=== PATIENT | female | born 1950 | race Two or more races ===

== ENCOUNTER → 2021-10-23 | Outpatient (CLI) | payer MEDICARE, BC ==
[2021-10-23 16:37] LABS: Appearance,Urine Clear (Clear); Bacteria,Urine None Seen /HPF (None Seen); Bilirubin,Urine Negative (Negative); Blood,Urine Negative (Negative); Color,Urine Yellow (Yellow); Ketones,Urine Negative (Negative); Nitrite,Urine Negative (Negative); Specific Gravity,Urine 1.017 (1.001-1.030); Urobilinogen,Urine 0.2 (0.2,1.0)
== END | disposition home or self-care (01) ==
LOC: LABPAT 09:53
PROVIDERS: ATTEND Orthopaedic Surgery
DX: Z01.812 Encounter for preprocedural laboratory examination (principal); M17.12 Unilateral primary osteoarthritis, left knee
CPT/HCPCS: 81001; 87070

== ENCOUNTER → 2021-10-30 | Outpatient (CLI) | payer MEDICARE, BC ==
--- NOTE | 2021-10-30 16:29 | CT ---
EXAMINATION TYPE: CT left knee - [facility] Protocol DATE OF EXAM: 10/30/2021 COMPARISON: None. HISTORY: left knee pain CT DLP: 885.2 mGycm Automated exposure control for dose reduction was used. FINDINGS: Exam is for surgical planning and not for diagnostic purposes. Left hip joint shows advanced degenera tive change with [id number] appearance and extensive subchondral cystic change. There are prominent head neck collar spurs in the left proximal femur. Osseous structures are demineralized. Moderate to severe tricompartment joint space loss and spurring in the left knee joint is appreciated . Ankle mortise symmetry is maintained. IMPRESSION: As above.
== END | disposition home or self-care (01) ==
LOC: RADCTMAIN 15:37
PROVIDERS: ATTEND Orthopaedic Surgery
DX: M16.12 Unilateral primary osteoarthritis, left hip (principal); M85.652 Other cyst of bone, left thigh; M25.862 Other specified joint disorders, left knee

== ENCOUNTER 2021-11-15 05:44 | Inpatient (IN) | payer MEDICARE, BC ==
[2021-11-13 11:47] VITALS: BMI 40.1
[~2021-11-15 05:44] MED LIST: TRANEXAMIC ACID IN NACL,ISO-OS 1,000 MG in SALINE 1 100ML.BAG IVPB PRN
[2021-11-15] MEDS ORDERED: ACETAMINOPHEN TAB 500 MG TAB PO PRN (06:00)
[2021-11-15] MEDS ORDERED: DEXAMETHASONE SOD PHOSPHATE 10 MG/ML 1 ML VIAL IV PRN (06:00)
[2021-11-15] MEDS ORDERED: FAMOTIDINE 20 MG/2 ML VIAL IVP PRN (06:00)
[2021-11-15] MEDS ORDERED: ONDANSETRON 4 MG/2 ML VIAL IVP PRN ×3 (06:00→10:38)
[2021-11-15] MEDS ORDERED: oxyCODONE ER 10 MG TAB.ER.12H PO PRN (06:00)
[2021-11-15] MEDS ORDERED: KETOROLAC 15 MG/ML 1 ML VIAL IVP PRN (06:00)
[2021-11-15] MEDS ORDERED: DOCUSATE 100 MG CAP PO PRN (06:00)
[2021-11-15] MEDS ORDERED: LIDOCAINE 1% (10MG/ML) FOR IV START INTRADERMA PRN (06:17)
[2021-11-15] MEDS ORDERED: ONDANSETRON 4 MG/2 ML VIAL IVP ONE (06:17)
[2021-11-15] MEDS ORDERED: DEXAMETHASONE SOD PHOSPHATE 4 MG/ML 1 ML VIAL IV ONE (06:17)
[2021-11-15] MEDS: LACTATED RINGERS 1,000 ML IV SCH ×2 (06:22→16:12)
[2021-11-15] MEDS ORDERED: HYDROmorphone 0.5 MG/0.5 ML SYRINGE IVP PRN ×3 (07:00→10:38)
[2021-11-15] MEDS ORDERED: MIDAZOLAM 2 MG/2 ML VIAL IVP ONE (07:00)
[2021-11-15] MEDS ORDERED: ROPIVACAINE 5 MG/ML 30 ML VIAL ONE (07:54)
[2021-11-15] MEDS ORDERED: PROPOFOL 10 MG/ML 20 ML VIAL IV ONE (07:54)
[2021-11-15] MEDS ORDERED: LABETALOL 5 MG/ML VIAL MDV ONE (07:54)
[2021-11-15] MEDS ORDERED: TRANEXAMIC ACID IN NACL,ISO-OS 1,000 MG/100 ML BAG ONE (07:54)
[2021-11-15] MEDS ORDERED: SUCCINYLCHOLINE CHLORIDE VIAL 200 MG/10 ML VIAL IV ONE (07:54)
[2021-11-15] MEDS ORDERED: HYDROmorphone (PF) 1 MG/ML ONE (07:54)
[2021-11-15] MEDS ORDERED: DEXAMETHASONE SOD PHOSPHATE 4 MG/ML 1 ML VIAL ONE (07:54)
[2021-11-15] MEDS ORDERED: LIDOCAINE 2% INJ 20 MG/ML (2 ML VIAL) ONE (07:54)
[2021-11-15] MEDS ORDERED: GLYCOPYRROLATE 0.2 MG/ML 2 ML VIAL ONE (07:54)
[2021-11-15] MEDS ORDERED: ROCURONIUM 10 MG/ML (5 ML VIAL) IV ONE (07:54)
[2021-11-15] MEDS ORDERED: NEOSTIGMINE 1 MG/ML 10 ML VIAL ONE (07:54)
[2021-11-15] MEDS ORDERED: fentaNYL (PF) 50 MCG/ML 2 ML AMP ONE (07:54)
[2021-11-15] MEDS ORDERED: MIDAZOLAM 2 MG/2 ML VIAL ONE (07:54)
[2021-11-15] MEDS: ROPIVACAINE/EPI/CLONIDINE/KET 50 ML SYRINGE MISCELLANE PRN ×2 (08:32→09:04)
[2021-11-15] MEDS ORDERED: LACTATED RINGERS 1,000 ML IV ONE (08:37)
[2021-11-15] MEDS ORDERED: HYDROcodone/APAP 5-325MG 1 EACH TAB PO PRN (10:38)
[2021-11-15] MEDS ORDERED: NALOXONE 0.4 MG/ML 1 ML VIAL IV PRN (10:38)
--- NOTE | 2021-11-15 10:54 | P.OP ---
Date of Procedure: 11/15/21 Preoperative Diagnosis: 1. Severe left knee arthritis 2. BMI 40 3. Severe left hip arthritis Postoperative Diagnosis: Same Procedure(s) Performed: Left total knee arthroplasty Implants: 1. Xochilt triathlon CR femur size #4 2. [place] triathlon size #4 universal baseplate with 12 x 50 mm stem 3. [place] triathlon size #410 mm CS poly- 4. [employer]ilt triathlon 29 mm asymmetric patellar button Anesthesia: GETA Surgeon: Flip Rodriguez Clinical Researcher #1: Raúl Bo Estimated Blood Loss (ml): 100 IV fluids (ml): 1,200 Pathology: none sent Condition: stable Disposition: PACU Indications for Procedure: The patient is very pleasant 71-year-old female with multiple lower extremity issues including severe left hip arthritis and knee arthritis. Her main complaint in the office was her left knee. She failed to improve with a long course of nonsurgical treatment and ultimately requested going forward with surgery. She was able to lose weight and bring her BMI down to 40. Again she had multiple complaints but her biggest complaint was her left knee. I recommended a total knee replacement. She understands the procedure and potential outcomes. She also understands the possibility for continued pain given her hip arthritis and back issues. We had a long discussion of the potential risks and complications of an elective total knee replacement including but certainly not limited to risks from anesthesia, superficial infection, deep infection, periprosthetic joint infection, instability, stiffness, extensor mechanism issues, aseptic loosening, patellar maltracking, continued or worsened pain, need for further surgery including revision, DVT, PE, other medical complications, a generalized to satisfaction with her surgical outcome, and possibly loss of life or limb. The patient had realistic expectations and provided her verbal and written consent to go forward with surgery. Description of Procedure: The patient was identified in preoperative holding and the correct operative extremity was verified and marked with a marker. I reviewed the consent form with the patient at length. All of their questions were answered. The patient was given a block by anesthesia. They were then brought back to the operating room. They were transferred onto the operating room table where a general anesthetic, preoperative antibiotics, and tranexamic acid were administered by anesthesia. A tourniquet was applied to the proximal aspect of the operative extremity. The contralateral extremity was padded under the heel and secured to the operating room table with a nonsterile blue towel and tape. The ipsilateral arm was carefully draped across the patient's chest and secured with a pillow and foam. A post was applied over the lateral aspect of the ipsilateral thigh and a bolster was placed under the ipsilateral foot. I verified that the operative extremity was stable and the knee was flexed to 90. The operative extremity was then placed in a leg waggoner, nonsterile drapes were applied, and the extremity was prepped and draped sterilely in the standard sterile fashion. Prior to starting surgery timeout was performed identifying the correct patient, operative extremity, and procedure. The leg was then elevated, exsanguinated with an Esmarch bandage, and the tourniquet was inflated. An anterior midline incision was made sharply with a scalpel. Once I had dissected deep to the superficial fascial layer medial and lateral flaps were elevated. A medial parapatellar arthrotomy was created. Upon opening the knee joint there were diffuse arthritic changes in all 3 compartments. The anterior horn of the medial meniscus were sharply released and a medial release was performed around the posterior medial corner of the knee to facilitate retractor placement. The fat pad was excised with electrocautery. The patella was found to be severely arthritic and a provisional cut was made with a sagittal saw to facilitate mobilization of the extensor mechanism during the procedure. Remnants of the ACL and PCL were then excised from the notch. 4 mm pins were then placed within the incision in the medial distal femur and proximal tibia. Arrays were applied to the pins and I verified they were completely tightened. The knee was then registered with the [employer] robot and manipulations in implant position were made to balance the knee and opitmize implant position. Using the Anil robotic saw all cuts were made in accordance with our plan. After all bony fragments had been removed the cuts were verified with the planar probe. The tibia was then subluxed forward and sized. The knee was brought into flexion and a lamina mold filler plastic dolls was placed to allow removal of the meniscal remnants both medially and laterally as well as posterior osteophytes. Local anesthetic was then infiltrated around the joint capsule. Trial implants were then placed within the knee. Range of motion and collateral ligament tension was then evaluated. Adjustments in implant size and position were then made accordingly. Once the knee was felt to be appropriately balanced the Anil pins were removed. The patella was then recut, sized, and punched. A trial patellar button was then placed. With the trial components in place, the patella tracked midline. The femur was then drilled and the trial component removed. The trial tibial component was then appropriately rotated, pinned, and prepared for the keel. Due to the patient's BMI and relatively poor bone quality a 12 x 50 mm stem was used on the tibial baseplate. All trial components were then removed from the knee. The knee was thoroughly irrigated with pulsatile lavage. Cement was prepared via vacuum mixing in a bowl on the back table. I then hand pressurized cement into the femur and tibia and placed the implants beginning with the tibial base tray and poly liner, femoral component, and finally the patellar button. All extruded cement was removed including from the pin sites. Once the cement had hardened the knee was evaluated one final time with the final polyethylene liner in place. The knee had full extension and flexion and felt stable to varus and valgus stress throughout the arc of motion. The tourniquet was released and with the tourniquet down the patella tracked midline. All bleeders were controlled with electrocautery. The knee was then soaked for 3 mi nutes with a dilute Betadine soak. The knee was thoroughly irrigated using 3 L of sterile saline and pulsatile lavage. A deep drain was placed. The extensor mechanism was then reapproximated using pop off Vicryl sutures followed by a running barbed suture. The knee was then closed in layers with a 0 strata fix for the deep fascial layer, 2-0 strata fix for the superficial subcutaneous layer and Monocryl and Steri-Strips for the skin. A sterile dressing and drain sponge were applied. I verified that all instrument, sponge, and sharp counts were correct. The patient was then transferred off the operating room table, extubated, and brought to recovery having tolerated the procedure well. Raúl Bo PA-C was required as a skilled automotive service assistant due to the complexity of the procedure for patient positioning, draping, retraction, placement of hardware, and closure of wound. PLAN: The patient can weight-bear as tolerated on the operative extremity. DVT prophylaxis with aspirin 81 mg twice a day based on preoperative risk stratification. Follow-up in the office in 2 weeks for wound check and x-rays of the knee including an AP and lateral.
--- NOTE | 2021-11-15 11:02 | XR ---
EXAMINATION TYPE: XR knee limited LT DATE OF EXAM: 11/15/2021 CLINICAL HISTORY: Postoperative evaluation Two views of the left knee are submitted. Identified are changes of total knee arthroplasty with fem oral and tibial components appearing well seated. Postsurgical soft tissue changes are noted. Align ment is anatomic.
[2021-11-15] MEDS: ASPIRIN 81 MG PO SCH (21:27)
[2021-11-15] MEDS: SENNOSIDES-DOCUSATE SODIUM 1 EACH TAB PO SCH (21:27)
[2021-11-15] MEDS: HYDROcodone/APAP 5-325MG 1 EACH TAB PO PRN (21:29)
[2021-11-16] MEDS: HYDROmorphone 0.5 MG/0.5 ML SYRINGE IVP PRN ×4 (05:56→20:28)
[2021-11-16] MEDS: LACTATED RINGERS 1,000 ML IV SCH ×3 (06:23→17:01)
[2021-11-16] MEDS: HYDROcodone/APAP 5-325MG 1 EACH TAB PO PRN ×2 (07:39→16:13)
[2021-11-16] MEDS: ASPIRIN 81 MG PO SCH ×2 (07:40→20:28)
--- NOTE | 2021-11-16 08:37 | P.PN ---
Subjective Progress Note Date: 11/16/21 The patient is overall doing well. She has pain as expected in her left knee. She has concerns about going home however. No other complaints this morning. Objective - Vital Signs Vital signs: Vital Signs Temp 97.7 F 11/16/21 05:00 Pulse 73 11/16/21 05:00 Resp 16 11/16/21 05:00 BP 132/63 11/16/21 05:00 Pulse Ox 98 11/16/21 05:00 Intake & Output 11/15/21 11/16/21 11/16/21 18:59 06:59 18:59 Intake Total 1490 900 Output Total 100 Balance 1390 900 Weight 102.7 kg Intake: IV 1490 Lactated Ringers 1,000 ml 190 @ 75 mls/hr IV .[id number] ROSE [facility]ARY Rx#:[id number] Intake, IV Titration 900 Amount Lactated Ringers 1,000 ml 900 @ 75 mls/hr IV .[id number] [facility]SE MARY Rx#:[id number] Output: Estimated Blood Loss 100 Other: # Voids 3 - Exam The patient is alert and easily able to answer questions. She is sitting up in her bedside chair. A focused exam of the left leg was conducted. On inspection there is a clean-appearing dressing and drain. The drain was pulled. There is minimal swelling over her knee. There is no drainage. She is able to fully extend her knee. Her femoral nerve function is intact. Distally she is able to plantarflex her ankle and her toes. Assessment and Plan Assessment: Postoperative day 1 status post left total knee arthroplasty, doing well. Plan: 1. Weightbearing as tolerated left leg, up with assistance, mobilize to chair. 2. Physical therapy for gait training 3. DVT prophylaxis with aspirin 81 mg twice a day 4 weeks 4. Drain pulled this morning. 5. Appreciate internal medicine assistance preoperative medical management and awaiting cardiology consult for bradycardia 6. Discharge - the patient has concerns about going home and has requested SNF versus rehab. We will see how she does with physical therapy today and make arrangements as necessary.
--- NOTE | 2021-11-16 11:07 | P.CONS ---
History of Present Illness - History of Present Illness 71 years old female with past medical history of Osteoarthritis , Insomnia, Urinary incontinence, constipation. Anxiety. She is a patient of Dr. Lundberg She was admitted for severe left knee osteoarthritis status post total left knee arthroplasty. Today is postoperative day #1. Patient was transferred to the general medical floor in stable condition. Medical consult was placed for medical management also patient was been complaining of from bradycardia. Patient is not on beta lexa. Today she was sitting in chair, looks comfortable fully awake and oriented, she denies any specific complaints other than pain in her left knee. She denies chest pain or dyspnea. Abdominal pain or nausea vomiting or diarrhea. She complains from constipation No urinary complaints like dysuria or urgency. No headache or weakness or numbness or dizziness. She denies smoking, alcohol or illicit drugs. Today she worked with physical therapy but she felt though she when she came back at last visit Heart rate 40s to 50s. Blood pressure is stable. Patient is afebrile. She is saturating 100% on 3 L oxygen via nasal cannula. She is currently on aspirin 81 mg twice a day, Ringer lactate at 75 mL/h as well as pain medication. Labs from this morning are still pending Review of Systems Review of systems CONSTITUTIONAL: No fever, no malaise, no fatigue. HEENT: No recent visual problems or hearing problems. Denied any sore throat. CARDIOVASCULAR: No orthopnea, PND, no palpitations, no syncope. PULMONARY: No shortness of breath, no cough, no hemoptysis. GASTROINTESTINAL: No diarrhea, no nausea, no vomiting, no abdominal pain. Normoactive bowel sounds. NEUROLOGICAL: No headaches, no weakness, no numbness. HEMATOLOGICAL: Denies any bleeding or petechiae. GENITOURINARY: Denies any burning micturition, frequency, or urgency. MUSCULOSKELETAL/RHEUMATOLOGICAL: Denies any joint pain, swelling, or any muscle pain. ENDOCRINE: Denies any polyuria or polydipsia. Past Medical History Past Medical History: Osteoarthritis (OA) Additional Past Medical History / Comment(s): Insomnia, Urinary incontinence, wears a pad 26/01, constipation. " had episode of severe dizziness, Dr Lundberg said it was Tinnitus, no problems since". History of Any Multi-Drug Resistant Organisms: None Reported Past Surgical History: Hysterectomy Past Anesthesia/Blood Transfusion Reactions: No Reported Reaction Additional Past Anesthesia/Blood Transfusion Reaction / Comm: "40+ yrs ago, had gas at dentist, took a couple hrs to come out of it". Past Psychological History: Anxiety Additional Psychological History / Comment(s): Anxiety about surgery. Smoking Status: Never smoker Past Alcohol Use History: None Reported Past Drug Use History: None Reported - Past Family History Mother Family Medical History: Cancer Additional Family Medical History / Comment(s): Breast cancer. Medications and Allergies Home Medications Medication Instructions Recorded Confirmed Type Acetaminophen [Tylenol] 500 - 1,000 mg PO Q4-6H PRN 11/13/21 11/15/21 History RX: traMADol HCL 50 mg PO Q6H PRN 11/13/21 11/15/21 History Zolpidem Tartrate [Ambien] 10 mg PO HS 11/13/21 11/15/21 History Allergies Allergy/AdvReac Type Severity Reaction Status Date / Time No Known Allergies Allergy Verified 11/15/21 06:18 Physical Exam Vitals: Vital Signs Temp Pulse Pulse Resp BP Pulse Ox 11/16/21 05:00 97.7 F 73 16 132/63 98 11/16/21 01:38 97.4 F L 56 L 16 114/69 99 11/15/21 18:11 97.1 F L 52 L 18 115/68 100 11/15/21 15:29 42 L 103/66 99 11/15/21 15:14 45 L 103/67 96 11/15/21 14:59 42 L 105/67 99 11/15/21 14:44 46 L 105/65 97 11/15/21 14:29 43 L 103/65 97 11/15/21 14:16 44 L 101/51 97 11/15/21 13:59 46 L 106/68 99 11/15/21 13:45 45 L 106/52 96 11/15/21 13:24 44 L 108/68 96 11/15/21 13:22 97.5 F L 49 L 102/56 95 11/15/21 13:14 44 L 108/68 96 11/15/21 12:30 45 L 16 112/57 98 11/15/21 12:17 43 L 16 107/53 98 11/15/21 12:00 44 L 16 113/54 97 11/15/21 11:45 45 L 16 116/56 99 11/15/21 11:30 48 L 16 119/58 98 11/15/21 11:15 52 L 16 117/55 98 11/15/21 11:00 53 L 16 126/60 98 11/15/21 10:45 55 L 16 121/55 98 11/15/21 10:33 98.3 F 59 L 16 132/62 97 Intake and Output 11/15/21 11/16/21 11/16/21 22:59 06:59 14:59 Intake Total 190 900 Balance 190 900 Intake: IV 190 Lactated Ringers 1,000 ml 190 @ 75 mls/hr IV .[id number] [facility]SE [facility] Rx#:[id number] Intake, IV Titration 900 Amount Lactated Ringers 1,000 ml 900 @ 75 mls/hr IV .[id number] ROSE MARY Rx#:[id number] Other: # Voids 3 GENERAL: The patient is alert and oriented x3, not in any acute distress. Well developed, well nourished. HEENT: Pupils are round and equally reacting to light. EOMI. No scleral icterus. No conjunctival pallor. Normocephalic, atraumatic. No pharyngeal erythema. No thyromegaly. CARDIOVASCULAR: S1 and S2 present. No murmurs, rubs, or gallops. PULMONARY: Chest is clear to auscultation, no wheezing or crackles. ABDOMEN: Soft, nontender, nondistended, normoactive bowel sounds. No palpable organomegaly. MUSCULOSKELETAL: No joint swelling or deformity. -EXTREMITIES: No cyanosis, clubbing, or pedal edema. Left knee surgery with dressing in place him. deferred exam to surgery team NEUROLOGICAL: Gross neurological examination did not reveal any focal deficits. SKIN: No rashes. no petechiae. Assessment and Plan Assessment: asymptomatic bradycardia Severe osteoarthritis status post total left knee arthroplasty History of insomnia History of constipation. Plan: This is a pleasant 71 years old female who presents for left total knee arthroplasty on bradycardia. Continue with telemetry Continue gentle hydration with follow-up TSH, potassium and magnesium. Cardiology consult Continue with perioperative management as per primary orthopedic team. Labs and medication were reviewed.. Continue same treatment. Continue with symptomatic treatment. Resume home medication. Monitor lytes and vitals. DVT and GI prophylaxis. Further recommendationsas per clinical course of the patient DVT prophylaxis and pain management deferred to the surgery primary team Thank you for consulting us, we'll follow up with you
[2021-11-16 11:13] LABS: Basophils # (A) 0.02 X 10*3/uL (0.00-0.10); Basophils % (A) 0.1 %; Eosinophils # (A) 0 X 10*3/uL (0.04-0.35); Eosinophils % (A) 0 %; HGB 11.2 g/dL (12.0-15.0); Immature Grans, Automated 0.5 %; Lymphocytes # (A) 1.47 X 10*3/uL (0.90-5.00); Lymphocytes % (A) 9.9 %; MCV 93.8 fL (80.0-97.0); Mean Platelet Volume 10.3 fL (9.5-12.2); Monocytes # (A) 0.85 X 10*3/uL (0.20-1.00); Monocytes % (A) 5.7 %; NRBC Per 100 WBC 0 /100 WBCS (0.0-0.0); Neutrophils # (A) 12.43 X 10*3/uL (1.80-7.70); Neutrophils % (A) 83.8 %; Platelet Count 194 X 10*3/uL (140-440); RBC 3.73 X 10*6/uL (4.10-5.20); RDW 13.4 % (11.5-14.5); WBC 14.84 X 10*3/uL (4.50-10.00)
[2021-11-16] MEDS ORDERED: BENZOCAINE/MENTHOL LOZENG 1 EACH LOZENGE MUCOUS MEM PRN (11:19)
[2021-11-16 11:38] LABS: African American GFR (CKD) 85.4 (60.0-200.0); BUN/Creat Ratio 19.63 Ratio (12.00-20.00); Blood Urea Nitrogen 15.7 mg/dL (9.0-27.0); Calcium 10.9 mg/dL (8.7-10.3); Carbon Dioxide 23.4 mmol/L (20.0-27.5); Chloride 104 mmol/L (96-109); Glucose 111 mg/dL (70-110); Magnesium 2.1 mg/dL (1.5-2.4); Non-African American GFR(CKD) 73.7 (60.0-200.0); Potassium 4.7 mmol/L (3.5-5.5); Sodium 138 mmol/L (135-145)
[2021-11-16] MEDS: hydrOXYzine pamoate 25 MG CAP PO PRN (16:12)
--- NOTE | 2021-11-16 16:39 | P.CRDCN ---
History of Present Illness History of present illness: HISTORY OF PRESENTING ILLNESS Patient is a pleasant 71-year-old female with history of prior vertigo episode times one, osteoarthritis, family history of father with [place] in his late 50s, obesity who presented for elective knee surgery. Patient underwent successful total knee arthroplasty 11/15/2021. She did well with surgery however still has some knee pain and has been requiring narcotics. She was found to have bradycardia with heart rates in the 50s and therefore monitor was placed. This did show sinus bradycardia without any significant pauses. She did work with physical therapy and became somewhat dizzy with this however appears more likely this was related to the narcotics she has been taking. She denies any prior history of dizziness or lightheadedness other than one episode of vertigo. She denies any chest pain or pressure. No dyspnea. She has not had prior cardiac workup. EKG has not been performed yet. Cardiology was asked to evaluate secondary to bradycardia. REVIEW OF SYSTEMS At the time of my exam: CONSTITUTIONAL: Denies fever or chills. CARDIOVASCULAR: Denies chest pain, shortness of breath, orthopnea, PND or palpitations. RESPIRATORY: Denies cough. GASTROINTESTINAL: Denies abdominal pain, diarrhea, constipation, nausea or vomiting. MUSCULOSKELETAL: Denies myalgias. NEUROLOGIC: Denies numbness, tingling or weakness. ENDOCRINE: Denies fatigue, weight change, polydipsia or polyurina. GENITOURINARY: Denies burning, hematuria or urgency with micturation. HEMATOLOGIC: Denies history of anemia or bleeding. PHYSICAL EXAMINATION Vital signs reviewed. CONSTITUTIONAL: No apparent distress. HEENT: Head is normocephalic. Pupils are equal, round. Sclerae anicteric. Mucous membranes of the mouth are moist. No JVD. No carotid bruit. CHEST EXAMINATION: Lungs are clear to auscultation. No chest wall tenderness is noted on palpation or with deep breathing. HEART EXAMINATION: Regular rate and rhythm. S1, S2 heard. No murmurs, gallops or rub. ABDOMEN: Soft, nontender. Positive bowel sounds. EXTREMITIES: 2+ peripheral pulses, no lower extremity edema and no calf tenderness. NEUROLOGIC EXAMINATION: Patient is awake, alert and oriented x3. ASSESSMENT Asymptomatic sinus bradycardia Episode of lightheadedness/"wooziness" with physical therapy suspect mainly related to narcotics Status post total knee arthroplasty 11/15/2021 Family history coronary artery disease PLAN Patient has been doing well with blood pressure well controlled on no sig nificant medications. She does have asymptomatic sinus bradycardia. This does not appear to be causing any symptoms of lightheadedness. Her lightheaded episode appeared to be related to the narcotics that she has been taking for pain. Her pain may also be causing some degree of vagal response and resultant bradycardia. 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 Check formal EKG. Further recommendations to follow. Past Medical History Past Medical History: Osteoarthritis (OA) Additional Past Medical History / Comment(s): Insomnia, Urinary incontinence, wears a pad 26/01, constipation. " had episode of severe dizziness, Dr Lundberg said it was Tinnitus, no problems since". History of Any Multi-Drug Resistant Organisms: None Reported Past Surgical History: Hysterectomy Past Anesthesia/Blood Transfusion Reactions: No Reported Reaction Additional Past Anesthesia/Blood Transfusion Reaction / Comment(s): "40+ yrs ago, had gas at dentist, took a couple hrs to come out of it". Past Psychological History: Anxiety Additional Psychological History / Comment(s): Anxiety about surgery. Smoking Status: Never smoker Past Alcohol Use History: None Reported Past Drug Use History: None Reported - Past Family History Mother Family Medical History: Cancer Additional Family Medical History / Comment(s): Breast cancer. Medications and Allergies Home Medications Medication Instructions Recorded Confirmed Type Acetaminophen [Tylenol] 500 - 1,000 mg PO Q4-6H PRN 11/13/21 11/15/21 History Zolpidem Tartrate [Ambien] 10 mg PO HS 11/13/21 11/15/21 History traMADol HCL 50 mg PO Q6H PRN 11/13/21 11/15/21 History Allergies Allergy/AdvReac Type Severity Reaction Status Date / Time No Known Allergies Allergy Verified 11/15/21 06:18 Physical Exam Vitals: Vital Signs Temp Pulse Resp BP Pulse Ox 11/16/21 14:00 98.6 F 53 L 18 125/50 98 11/16/21 08:00 98.5 F 51 L 18 118/43 99 11/16/21 05:00 97.7 F 73 16 132/63 98 11/16/21 01:38 97.4 F L 56 L 16 114/69 99 11/15/21 18:11 97.1 F L 52 L 18 115/68 100 Intake and Output 11/16/21 11/16/21 11/16/21 06:59 14:59 22:59 Intake Total 900 Balance 900 Intake: Intake, IV Titration 900 Amount Lactated Ringers 1,000 ml 900 @ 75 mls/hr IV .[id number] [facility] Rx#:[id number] Other: Voiding Method Bedside Commode # Voids 3 Results 11/16/21 06:25 11/16/21 06:25 CBC 11/16/21 Range/Units 06:25 WBC 14.84 H (4.50-10.00) X 10*3/uL RBC 3.73 L (4.10-5.20) X 10*6/uL Hgb 11.2 L (12.0-15.0) g/dL Hct 35.0 L (37.2-46.3) % Plt Count 194 (140-440) X 10*3/uL Comprehensive Metabolic Panel 11/16/21 Range/Units 06:25 Sodium 138 (135-145) mmol/L Potassium 4.7 (3.5-5.5) mmol/L Chloride 104 (96-109) mmol/L Carbon Dioxide 23.4 (20.0-27.5) mmol/L BUN 15.7 (9.0-27.0) mg/dL Creatinine 0.8 (0.6-1.5) mg/dL Glucose 111 H (70-110) mg/dL Calcium 10.9 H (8.7-10.3) mg/dL Current Medications Generic Name Dose Route Start Last Admin Trade Name Freq PRN Reason Stop Dose Admin Hydrocodone Bitart/Acetaminophen 1 each 11/15/21 10:38 11/15/21 13:48 Hydrocodone/Apap 5-325mg 1 Each Tab PO 12/15/21 10:39 1 each Q6HR PRN Administration Pain Scale 1 to 5 Hydrocodone Bitart/Acetaminophen 2 each 11/15/21 10:38 11/16/21 16:13 Hydrocodone/Apap 5-325mg 1 Each Tab PO 12/15/21 10:39 2 each Q6HR PRN Administration Pain Scale 6 to 10 Aspirin 81 mg 11/15/21 21:00 11/16/21 07:40 Aspirin 81 Mg PO 12/15/21 21:01 81 mg BID ROSE MARY Administration Benzocaine/Menthol 1 each 11/16/21 11:19 11/16/21 11:49 Benzocaine/Menthol Lozeng 1 Each Lozenge MUCOUS MEM 1 each Q6HR PRN Administration Sore Throat Hydromorphone HCl 0.125 mg 11/15/21 10:38 Hydromorphone 0.5 Mg/0.5 Ml Syringe IVP 12/15/21 10:39 Q3HR PRN Pain Scale 1 to 3 Hydromorphone HCl 0.5 mg 11/15/21 10:38 11/16/21 14:59 Hydromorphone 0.5 Mg/0.5 Ml Syringe IVP 12/15/21 10:39 0.5 mg Q3HR PRN Administration Pain Scale 7 to 10 Hydromorphone HCl 0.25 mg 11/15/21 10:38 Hydromorphone 0.5 Mg/0.5 Ml Syringe IVP 12/15/21 10:39 Q3HR PRN Pain Scale 4 to 6 Hydroxyzine Pamoate 25 mg 11/15/21 10:38 11/16/21 16:12 Hydroxyzine Pamoate 25 Mg Cap PO 12/15/21 10:39 25 mg Q4HR PRN Administration Nausea, Anxiety, Pain Control Lactated Ringer's 1,000 mls @ 20 mls/hr 11/15/21 06:17 11/16/21 06:23 Lactated Ringers IV 12/15/21 06:18 Not Given .Q24H ROSE MARY Lactated Ringer's 1,000 mls @ 75 mls/hr 11/15/21 16:15 11/16/21 06:23 Lactated Ringers IV 75 mls/hr .[id number] [facility] Administration Lidocaine HCl 0.1 ml 11/15/21 06:17 11/15/21 06:45 Lidocaine 1% (10mg/Ml) For Iv Start INTRADERMA 12/15/21 06:18 0.1 ml PER PROTOCOL PRN Administration IV Start Naloxone HCl 0.2 mg 11/15/21 10:38 Naloxone 0.4 Mg/Ml 1 Ml Vial IV 12/15/21 10:39 Q2M PRN Opioid Reversal Ondansetron HCl 4 mg 11/15/21 10:38 Ondansetron 4 Mg/2 Ml Vial IVP 12/15/21 10:39 Q8HR PRN Nausea And Vomiting Senna/Docusate Sodium 2 each 11/15/21 21:00 11/15/21 21:27 Sennosides-Docusate Sodium 1 Each Tab PO 12/15/21 21:01 2 each HS ROSE MARY Administration Intake and Output 11/16/21 11/16/21 11/16/21 06:59 14:59 22:59 Intake Total 900 Balance 900 Intake: Intake, IV Titration 900 Amount Lactated Ringers 1,000 ml 900 @ 75 mls/hr IV .[id number] [facility] Rx#:[id number] Other: Voiding Method Bedside Commode # Voids 3 11/16/21 06:25 11/16/21 06:25
[2021-11-16] MEDS: SENNOSIDES-DOCUSATE SODIUM 1 EACH TAB PO SCH (20:28)
[2021-11-17] MEDS: HYDROcodone/APAP 5-325MG 1 EACH TAB PO PRN ×3 (03:16→21:03)
[2021-11-17] MEDS: LACTATED RINGERS 1,000 ML IV SCH ×2 (07:51→07:55)
[2021-11-17] MEDS: ASPIRIN 81 MG PO SCH ×2 (07:54→21:03)
[2021-11-17 07:55] LABS: HCT 35.9 % (34.0-46.0); HGB 11.6 gm/dL (11.4-16.0); MCH 30.2 pg (25.0-35.0); MCHC 32.3 g/dL (31.0-37.0); MCV 93.6 fL (80.0-100.0); Mean Platelet Volume 7.3; Platelet Count 158 k/uL (150-450); RBC 3.83 m/uL (3.80-5.40); RDW 13.3 % (11.5-15.5); WBC 8.6 k/uL (3.8-10.6)
[2021-11-17] MEDS: HYDROmorphone 0.5 MG/0.5 ML SYRINGE IVP PRN (07:55)
--- NOTE | 2021-11-17 08:27 | P.PN ---
Subjective Progress Note Date: 11/17/21 Patient is doing well over well. She continues to have discomfort in her left knee, but this is expected. She has no chest pain or shortness of breath. She has been up several times walking. Objective - Vital Signs Vital signs: Vital Signs Temp 98.7 F 11/17/21 05:00 Pulse 77 11/17/21 05:00 Resp 16 11/17/21 05:00 BP 113/60 11/17/21 05:00 Pulse Ox 95 11/17/21 05:00 Intake & Output 11/16/21 11/17/21 11/17/21 18:59 06:59 18:59 Other: Voiding Method Bedside Commode # Voids 2 3 - Exam The patient is resting comfortably in bed. A focused exam of the left leg was conducted. On inspection dressing over the anterior aspect of her left knee is intact with no drainage. The dressing over the lateral aspect of her knee at the drain site is saturated was changed. There is no active bleeding. The left leg is moderately swollen and she does have some calf tenderness. She is able to actively dorsiflex her ankle and her toes with minimal pain. Her calf is soft and compressible. - Labs CBC & Chem 7: 11/17/21 07:47 11/16/21 06:25 Labs: Abnormal Lab Results - Last 24 Hours (Table) 11/16/21 11/16/21 Range/Units 06:25 06:25 WBC 14.84 H (4.50-10.00) X 10*3/uL RBC 3.73 L (4.10-5.20) X 10*6/uL Hgb 11.2 L (12.0-15.0) g/dL Hct 35.0 L (37.2-46.3) % Immature Gran # 0.07 H (0.00-0.04) X 10*3/uL Neutrophils # 12.43 H (1.80-7.70) X 10*3/uL Eosinophils # 0 L (0.04-0.35) X 10*3/uL Glucose 111 H (70-110) mg/dL Calcium 10.9 H (8.7-10.3) mg/dL Assessment and Plan Assessment: Postoperative day #1 status post left total knee arthroplasty Asymptomatic bradycardia BMI 40 Plan: 1. Weightbearing as tolerated left lower extremity, up with assistance, mobilize out of bed to chair. 2. Physical therapy for gait training and knee range of motion 3. 2 doses postoperative antibiotics complete 4. Appreciate internal medicine and cardiology preoperative medical management. Awaiting final cardiology recommendations for a symptomatically cardiac 5. DVT prophylaxis with aspirin 81 mg twice a day. Due to swelling and Tenderness will check a duplex ultrasound of the left lower extremity to rule out a DVT. 6. Dispo - will likely need discharge to rehab tomorrow.
--- NOTE | 2021-11-17 10:40 | US ---
EXAMINATION TYPE: US venous doppler duplex LE LT DATE OF EXAM: 11/17/2021 9:26 AM COMPARISON: NONE CLINICAL HISTORY: 71-year-old female rule out DVT, left total knee replacement last Thursday. SIDE PERFORMED: left TECHNIQUE: The lower extremity deep venous system is examined utilizing real time linear array sonog claire with graded compression, doppler sonography and color-flow sonography. FINDINGS: VESSELS IMAGED: Common Femoral Vein Deep Femoral Vein Greater Saphenous Vein * Femoral Vein Popliteal Vein Small Saphenous Vein * Proximal Calf Veins (* superficial vessels) Left Leg: Negative for DVT Residential Appliance Repair Technician notes: Patient of large body habitus with extensive swelling. IMPRESSION: No evidence for DVT within the left lower extremity imaged from the groin to the upper calf.
--- NOTE | 2021-11-17 11:20 | P.PN ---
Subjective 71 years old female with past medical history of Osteoarthritis , Insomnia, Urinary incontinence, constipation. Anxiety. She is a patient of Dr. Lundberg She was admitted for severe left knee osteoarthritis status post total left knee arthroplasty. Today is postoperative day #1. Patient was transferred to the general medical floor in stable condition. Medical consult was placed for medical management also patient was been complaining of from bradycardia. Patient is not on beta lexa. Today she was sitting in chair, looks comfortable fully awake and oriented, she denies any specific complaints other than pain in her left knee. She denies chest pain or dyspnea. Abdominal pain or nausea vomiting or diarrhea. She complains from constipation No urinary complaints like dysuria or urgency. No headache or weakness or numbness or dizziness. She denies smoking, alcohol or illicit drugs. Today she worked with physical therapy but she felt though she when she came back at last visit Heart rate 40s to 50s. Blood pressure is stable. Patient is afebrile. She is saturating 100% on 3 L oxygen via nasal cannula. She is currently on aspirin 81 mg twice a day, Ringer lactate at 75 mL/h as well as pain medication. Labs from this morning are still pending 11/18/2011 Patient is fully awake and oriented, she is asymptomatic today. Treatment improved and this morning is 70 to 80s. Hemodynamically stable. Alma kocytosis resolved and down to normal at 8.6. A CBC is normal. She has negative venous Doppler of the left leg for DVT. Patient is eating well per staff, discontinue IV fluids Objective - Vital Signs Vital signs: Vital Signs Temp 98.8 F 11/17/21 08:00 Pulse 75 11/17/21 08:00 Resp 18 11/17/21 08:00 BP 130/71 11/17/21 08:00 Pulse Ox 95 11/17/21 08:00 Intake & Output 11/16/21 11/17/21 11/17/21 18:59 06:59 18:59 Other: Voiding Method Bedside Commode # Voids 2 3 - Exam GENERAL: The patient is alert and oriented x3, not in any acute distress. Well developed, well nourished. HEENT: Pupils are round and equally reacting to light. EOMI. No scleral icterus. No conjunctival pallor. Normocephalic, atraumatic. No pharyngeal erythema. No thyromegaly. CARDIOVASCULAR: S1 and S2 present. No murmurs, rubs, or gallops. PULMONARY: Chest is clear to auscultation, no wheezing or crackles. ABDOMEN: Soft, nontender, nondistended, normoactive bowel sounds. No palpable organomegaly. MUSCULOSKELETAL: No joint swelling or deformity. -EXTREMITIES: No cyanosis, clubbing, or pedal edema. Left knee surgery with dressing in place him. deferred exam to surgery team NEUROLOGICAL: Gross neurological examination did not reveal any focal deficits. SKIN: No rashes. no petechiae. - Labs CBC & Chem 7: 11/17/21 07:47 11/16/21 06:25 Labs: Abnormal Lab Results - Last 24 Hours (Table) 11/16/21 11/16/21 Range/Units 06:25 06:25 WBC 14.84 H (4.50-10.00) X 10*3/uL RBC 3.73 L (4.10-5.20) X 10*6/uL Hgb 11.2 L (12.0-15.0) g/dL Hct 35.0 L (37.2-46.3) % Immature Gran # 0.07 H (0.00-0.04) X 10*3/uL Neutrophils # 12.43 H (1.80-7.70) X 10*3/uL Eosinophils # 0 L (0.04-0.35) X 10*3/uL Glucose 111 H (70-110) mg/dL Calcium 10.9 H (8.7-10.3) mg/dL Assessment and Plan Assessment: asymptomatic bradycardia Severe osteoarthritis status post total left knee arthroplasty History of insomnia History of constipation. Plan: This is a pleasant 71 years old female who presents for left total knee arthroplasty on bradycardia. Continue with telemetry Continue gentle hydration with follow-up TSH, potassium and magnesium. Cardiology consult Continue with perioperative management as per primary orthopedic team. Labs and medication were reviewed.. Continue same treatment. Continue with symptomatic treatment. Resume home medication. Monitor lytes and vitals. DVT and GI prophylaxis. Further recommendationsas per clinical course of the patient DVT prophylaxis and pain management deferred to the surgery primary team Thank you for consulting us, we'll follow up with you
[2021-11-17] MEDS: hydrOXYzine pamoate 25 MG CAP PO PRN (14:06)
--- NOTE | 2021-11-17 17:40 | P.PN ---
Subjective HISTORY OF PRESENTING ILLNESS Patient is a pleasant 71-year-old female with history of prior vertigo episode times one, osteoarthritis, family history of father with [place] in his late 50s, obesity who presented for elective knee surgery. Patient underwent successful total knee arthroplasty 11/15/2021. She did well with surgery however still has some knee pain and has been requiring narcotics. She was found to have bradycardia with heart rates in the 50s and therefore monitor was placed. This did show sinus bradycardia without any significant pauses. She did work with physical therapy and became somewhat dizzy with this however appears more likely this was related to the narcotics she has been taking. She denies any prior history of dizziness or lightheadedness other than one episode of vertigo. She denies any chest pain or pressure. No dyspnea. She has not had prior cardiac workup. EKG has not been performed yet. Cardiology was asked to evaluate secondary to bradycardia. 11/17 Patient seen and examined. Patient denies any further "wooziness ". She did work with physical therapy without any difficulty. Still requiring pain medications. EKG performed yesterday shows normal sinus rhythm without any significant ST or T wave abnormalities. PHYSICAL EXAMINATION Vital signs reviewed. CONSTITUTIONAL: No apparent distress. HEENT: Head is normocephalic. Pupils are equal, round. Sclerae anicteric. Mucous membranes of the mouth are moist. No JVD. No carotid bruit. CHEST EXAMINATION: Lungs are clear to auscultation. No chest wall tenderness is noted on palpation or with deep breathing. HEART EXAMINATION: Regular rate and rhythm. S1, S2 heard. No murmurs, gallops or rub. ABDOMEN: Soft, nontender. Positive bowel sounds. EXTREMITIES: 2+ peripheral pulses, no lower extremity edema and no calf tenderness. NEUROLOGIC EXAMINATION: Patient is awake, alert and oriented x3. ASSESSMENT Asymptomatic sinus bradycardia Episode of lightheadedness/"wooziness" with physical therapy suspect mainly related to narcotics Status post total knee arthroplasty 11/15/2021 Family history coronary artery disease PLAN No further significant bradycardic episodes and patient has been asymptomatic. Appears somewhat vagal mediated secondary to pain. Continue to monitor, no further recommendations from cardiology standpoint. Objective - Vital Signs Vital signs: Vital Signs Temp 97.9 F 11/17/21 14:00 Pulse 82 11/17/21 14:00 Resp 18 11/17/21 14:00 BP 149/69 11/17/21 14:00 Pulse Ox 95 11/17/21 14:00 Intake & Output 11/16/21 11/17/21 11/17/21 18:59 06:59 18:59 Other: Voiding Method Bedside Commode Toilet # Voids 2 3 - Labs CBC & Chem 7: 11/17/21 07:47 11/16/21 06:25
--- NOTE | 2021-11-17 19:44 | P.ANPRN ---
Procedure Note - Anesthesia - Nerve Block Performed Left Adductor Canal Single Time Out Performed: Yes Date of Procedure: 11/15/21 Procedure Start Time: 07:00 Procedure Stop Time: 07:04 Location of Patient: PreOp Indication: Acute Post-Operative Pain, Requested by Surgeon Sedation Type: Sedate with meaningful contact maintained Preparation: Sterile Prep Position: Supine Needle Types: Pajunk Needle Gauge: 21 Ultrasound used to visualize needle placement: Yes Ultrasound used to observe medication spread: Yes Blood Aspirated: No Pain Paresthesia on Injection Noted: No Resistance on Injection: Normal Image Stored and Saved: Yes Events: Uneventful and Well Tolerated (Ropivacaine 0.5% 20 mL plus dexamethasone 4 mg)
--- NOTE | 2021-11-17 19:46 | P.ANPRN ---
Procedure Note - Anesthesia - Nerve Block Performed Left iPack Single Time Out Performed: Yes Date of Procedure: 11/15/21 Procedure Start Time: 07:05 Procedure Stop Time: 07:06 Location of Patient: PreOp Indication: Acute Post-Operative Pain, Requested by Surgeon Sedation Type: Sedate with meaningful contact maintained Preparation: Sterile Prep Position: Supine Needle Types: Pajunk Needle Gauge: 21 Ultrasound used to visualize needle placement: Yes Ultrasound used to observe medication spread: Yes Blood Aspirated: No Pain Paresthesia on Injection Noted: No Resistance on Injection: Normal Image Stored and Saved: Yes Events: Uneventful and Well Tolerated (Ropivacaine 0.5% plus dexamethasone 4 mg)
[2021-11-17] MEDS: SENNOSIDES-DOCUSATE SODIUM 1 EACH TAB PO SCH (21:03)
[2021-11-18] MEDS: HYDROcodone/APAP 5-325MG 1 EACH TAB PO PRN ×2 (04:49→11:37)
[2021-11-18 07:36] VITALS: BP 130/71; PULSE 65; RESP 19; TEMP 98.7
[2021-11-18] MEDS: ASPIRIN 81 MG PO SCH (08:17)
--- NOTE | 2021-11-18 13:34 | P.DS ---
Providers Date of admission: 11/16/21 11:29 Expected date of discharge: 11/18/21 Attending physician: Flip Rodriguez Consults: 11/15/21 10:47 Consult Physician Routine Consulting Provider: Vanda Del Cid Consult Reason/Comments: medical management Do you want consulting provider notified?: Yes Primary care physician: Kimberlee Lundberg [facility] Course: This is a 71-year-old female who was last seen with complaint of continued left knee pain. The patient has a known history of degenerative arthritis of the left knee and presents to discuss surgical options. After discussion and consideration the patient elects to proceed with Anil total left knee arthroplasty. The patient is seen preoperatively by Dr. Lundberg and cleared for surgery. The patient is admitted to [facility] for total left knee arthroplasty. The procedure is performed without complication or sequelae. She is doing well postoperatively. Vital signs are stable at discharge. Labs are stable at discharge. The patient is seen and examined bedside this morning. She states the pain in her left knee is well-controlled at this time. She is ambulating with a walker with minimal assistance. She has no new new complaints or concerns today. On examination, patient is sitting up in bed in no apparent distress. She is alert and oriented 3. On inspection of the left knee, there is a clean, dry, intact surgical dressing in place with no bleeding or drainage through the dressing. There is mild swelling of the knee. Motor and sensory function is intact of the left lower extremity, the patient has good strength and range of motion of the left ankle and toes. Motor and sensory function is intact of the left lower extremity. Dorsalis pedis pulse is easily palpable, the left lower extremity is warm and well-perfused with capillary refill distally. The patient is discharged to rehab on post-op day #3, pending medical clearance. Please see orders and refer to the med rec for accurate list of medications. Plan - Discharge Summary Discharge Rx Participant: No New Discharge Prescriptions: New Docusate [Colace] 100 mg PO BID #60 capsule Diclofenac Sodium [Voltaren] 75 mg PO BID 30 Days #60 tab Aspirin 81 mg PO BID 30 Days #60 tab Omeprazole 40 mg PO DAILY 30 Days #30 cap HYDROcodone/APAP 5-325MG [[place] 5-325] 1 - 2 tab PO Q6HR PRN 7 Days #40 tab PRN Reason: Pain Continue Acetaminophen [Tylenol] 500 - 1,000 mg PO Q4-6H PRN PRN Reason: Pain Zolpidem Tartrate [Ambien] 10 mg PO HS traMADol HCL 50 mg PO Q6H PRN PRN Reason: Severe Pain Discharge Medication List Acetaminophen [Tylenol] 500 - 1,000 mg PO Q4-6H PRN 11/13/21 [History] Zolpidem Tartrate [Ambien] 10 mg PO HS 11/13/21 [History] traMADol HCL 50 mg PO Q6H PRN 11/13/21 [History] Aspirin 81 mg PO BID 30 Days #60 tab 11/18/21 [Rx] Diclofenac Sodium [Voltaren] 75 mg PO BID 30 Days #60 tab 11/18/21 [Rx] Docusate [Colace] 100 mg PO BID #60 capsule 11/18/21 [Rx] HYDROcodone/APAP 5-325MG [[place] 5-325] 1 - 2 tab PO Q6HR PRN 7 Days #40 tab 11/03 12/25 [Rx] Omeprazole 40 mg PO DAILY 30 Days #30 cap 11/18/21 [Rx] Follow up Appointment(s)/Referral(s): Flip Rodriguez MD [Medical Doctor] - 2 Weeks Activity/Diet/Wound Care/Special Instructions: Weight bear as tolerated on operative extremity with a walker. Keep operative dressing intact until follow-up appointment in the office. Call the office if dressing comes off and becomes saturated. Take pain medications as prescribed. Take aspirin 81mg BID x 4 weeks for blood clot prevention. Follow-up appointment in the office in 2 weeks. Call the office with any questions or concerns, Discharge Disposition: TRANSFER TO SNF/ECF
--- NOTE | 2021-11-18 15:06 | P.PN ---
Subjective Progress Note Date: 11/18/21 71 years old female with past medical history of Osteoarthritis , Insomnia, Urin taco incontinence, constipation. Anxiety. She is a patient of Dr. Lundberg She was admitted for severe left knee osteoarthritis status post total left knee arthroplasty. Today is postoperative day #1. Patient was transferred to the general medical floor in stable condition. Medical consult was placed for medical management also patient was been complaining of from bradycardia. Patient is not on beta lexa. Today she was sitting in chair, looks comfortable fully awake and oriented, she denies any specific complaints other than pain in her left knee. She denies chest pain or dyspnea. Abdominal pain or nausea vomiting or diarrhea. She complains from constipation No urinary complaints like dysuria or urgency. No headache or weakness or numbness or dizziness. She denies smoking, alcohol or illicit drugs. Today she worked with physical therapy but she felt though she when she came ba ck at last visit Heart rate 40s to 50s. Blood pressure is stable. Patient is afebrile. She is saturating 100% on 3 L oxygen via nasal cannula. She is currently on aspirin 81 mg twice a day, Ringer lactate at 75 mL/h as well as pain medication. Labs from this morning are still pending 11/17/2021 Patient is fully awake and oriented, she is asymptomatic today. Treatment improved and this morning is 70 to 80s. Hemodynamically stable. Leukocytosis resolved and down to normal at 8.6. A CBC is normal. She has negative venous Doppler of the left leg for DVT. Patient is eating well per staff, discontinue IV fluids 11/18/2021 Patient is seen and evaluated in follow-up with no acute overnight issues. Patient is scheduled for discharge to [facility] for continued PT/OT therapy by orthopedics today. Patient has sinus rhythm on the monitor and heart rate is 65. Patient denies any dizziness, lightheadedness, feeling of syncope. Patient is up and working with physical therapy and continues with weakness and agreeable to rehab. Patient reports to urinating with no difficulties and reports minimally passing gas and no bowel movement yet. Patient resumed on regular diet and tolerating with no reports of nausea or vomiting noted. Patient is afebrile and denies any chest pain or shortness of breath. Review of systems: Constitutional: No reports of fatigue, fever, or chills Cardiovascular: No reports of chest pain or palpitations Respiratory: No reports of shortness of breath or cough GI: No reports of nausea, vomiting, or diarrhea, patient is passing gas : No reports of dysuria or retention Neurovascular: reports of generalized weakness, some left knee discomfort All medications have been reviewed Active Medications Hydrocodone Bitart/Acetaminophen (Hydrocodone/Apap 5-325mg 1 Each Tab) 1 each PO Q6HR PRN PRN Reason: Pain Scale 1 to 5 Stop: 12/15/21 10:39 Last Admin: 11/15/21 13:48 Dose: 1 each Documented by: Hydrocodone Bitart/Acetaminophen (Hydrocodone/Apap 5-325mg 1 Each Tab) 2 each PO Q6HR PRN PRN Reason: Pain Scale 6 to 10 Stop: 12/15/21 10:39 Last Admin: 11/18/21 04:49 Dose: 2 each Documented by: Aspirin (Aspirin 81 Mg) 81 mg PO BID ROSE MARY Stop: 12/15/21 21:01 Last Admin: 11/18/21 08:17 Dose: 81 mg Documented by: Benzocaine/Menthol (Benzocaine/Menthol Lozeng 1 Each Lozenge) 1 each MUCOUS MEM Q6HR PRN PRN Reason: Sore Throat Last Admin: 11/16/21 11:49 Dose: 1 each Documented by: Hydromorphone HCl (Hydromorphone 0.5 Mg/0.5 Ml Syringe) 0.125 mg IVP Q3HR PRN PRN Reason: Pain Scale 1 to 3 Stop: 12/15/21 10:39 Hydromorphone HCl (Hydromorphone 0.5 Mg/0.5 Ml Syringe) 0.5 mg IVP Q3HR PRN PRN Reason: Pain Scale 7 to 10 Stop: 12/15/21 10:39 Last Admin: 11/17/21 07:55 Dose: 0.5 mg Documented by: Hydromorphone HCl (Hydromorphone 0.5 Mg/0.5 Ml Syringe) 0.25 mg IVP Q3HR PRN PRN Reason: Pain Scale 4 to 6 Stop: 12/15/21 10:39 Hydroxyzine Pamoate (Hydroxyzine Pamoate 25 Mg Cap) 25 mg PO Q4HR PRN PRN Reason: Nausea, Anxiety, Pain Control Stop: 12/15/21 10:39 Last Admin: 11/17/21 14:06 Dose: 25 mg Documented by: Lactated Ringer's (Lactated Ringers) 1,000 mls @ 20 mls/hr IV .Q24H ROSE MARY Stop: 12/15/21 06:18 Last Admin: 11/17/21 07:51 Dose: Not Given Documented by: Lidocaine HCl (Lidocaine 1% (10mg/Ml) For Iv Start) 0.1 ml INTRADERMA PER PROTOCOL PRN PRN Reason: IV Start Stop: 12/15/21 06:18 Last Admin: 11/15/21 06:45 Dose: 0.1 ml Documented by: Naloxone HCl (Naloxone 0.4 Mg/Ml 1 Ml Vial) 0.2 mg IV Q2M PRN PRN Reason: Opioid Reversal Stop: 12/15/21 10:39 Ondansetron HCl (Ondansetron 4 Mg/2 Ml Vial) 4 mg IVP Q8HR PRN PRN Reason: Nausea And Vomiting Stop: 12/15/21 10:39 Senna/Docusate Sodium (Sennosides-Docusate Sodium 1 Each Tab) 2 each PO HS ROSE MARY Stop: 12/15/21 21:01 Last Admin: 11/17/21 21:03 Dose: 2 each Documented by: Physical exam: GENERAL: The patient is alert and oriented x3, not in any acute distress. Well developed, well nourished. HEENT: Pupils are round and equally reacting to light. EOMI. No scleral icterus. No conjunctival pallor. Normocephalic, atraumatic. No pharyngeal erythema. No thyromegaly. CARDIOVASCULAR: S1 and S2 present. No murmurs, rubs, or gallops. PULMONARY: Chest is clear to auscultation, no wheezing or crackles. ABDOMEN: Soft, nontender, nondistended, normoactive bowel sounds. No palpable organomegaly. MUSCULOSKELETAL: No joint swelling or deformity. -EXTREMITIES: No cyanosis, clubbing, or pedal edema. Left knee surgery with dressing is dry and intact. NEUROLOGICAL: Gross neurological examination did not reveal any focal deficits. Diffuse weakness SKIN: No rashes. no petechiae. Assessment: asymptomatic bradycardia Severe osteoarthritis status post total left knee arthroplasty History of insomnia History of constipation GI prophylaxis EVT prophylaxis Full code Plan: This is a pleasant 71 years old female who presents for left total knee arthroplasty with bradycardia. Continue with telemetry, showing normal sinus and heart rate is in the 60s and okay to discontinue telemetry Labs and medication were reviewed.. Continue same treatment. Continue with symptomatic treatment. Resume home medication. Monitor lytes and vitals. DVT and GI prophylaxis. Further recommendationsas per clinical course of the patient DVT prophylaxis and pain management deferred to the surgery primary team, patient is being discharged today to [facility] and is medically cleared and discussed with patient about following up with primary care provider along with orthopedics on discharge. Thank you for this consultation and we will continue to follow during hospitalization The impression and plan of care has been dictated by Rafaela Walters, Nurse Practitioner as directed. Dr. Cain MD I have performed a history and examination and MDM of this patient, discussed the same with the dictator, and agree with the dictator's assessment and plan as written ,documented as a scribe. Based on total visit time, I have performed more than 50% of the visit. Objective - Vital Signs Vital signs: Vital Signs Temp 98.7 F 11/18/21 07:35 Pulse 65 11/18/21 08:18 Resp 19 11/18/21 08:18 BP 130/71 11/18/21 07:35 Pulse Ox 94 L 11/18/21 07:35 Intake & Output 11/17/21 11/18/21 11/18/21 18:59 06:59 18:59 Intake Total 1080 540 Balance 1080 540 Intake: Oral 1080 540 Other: Voiding Method Toilet Toilet # Voids 3 3 - Labs CBC & Chem 7: 11/17/21 07:47 11/16/21 06:25
== END 2021-11-18 15:25 | DRG 470 ==
LOC: OR 05:44 → 4SSUR 10:23 → OR 11-16 11:29 → OBSVTOIN 11-18 07:25
PROVIDERS: ADMIT Orthopaedic Surgery; ATTEND Orthopaedic Surgery
PROC: 0SRD0J9 Replacement of Left Knee Joint with Synthetic Substitute, Cemented, Open Approach (ICD-10-PCS; principal; 2021-11-15 07:30)
DX: M17.12 Unilateral primary osteoarthritis, left knee (principal); Z68.41 Body mass index [BMI] 40.0-44.9, adult; M16.12 Unilateral primary osteoarthritis, left hip; K59.00 Constipation, unspecified; R32 Unspecified urinary incontinence; G47.00 Insomnia, unspecified; F41.9 Anxiety disorder, unspecified; Z79.82 Long term (current) use of aspirin; Z80.3 Family history of malignant neoplasm of breast; Z82.49 Family history of ischemic heart disease and other diseases of the circulatory system; Z90.710 Acquired absence of both cervix and uterus; Z28.310 Unvaccinated for COVID-19; Z79.899 Other long term (current) drug therapy; Z98.890 Other specified postprocedural states
CPT/HCPCS: 64448; 64999; 76942; 80048; 83735; 84443; 85025; 85027; 93005

== ENCOUNTER → 2021-11-28 | Outpatient (CLI) | payer MEDICARE, BC ==
--- NOTE | 2021-11-28 19:04 | US ---
EXAMINATION TYPE: US venous doppler duplex LE LT DATE OF EXAM: 11/28/2021 5:26 PM COMPARISON: Prior left lower extremity venous ultrasound November 17, 2021 CLINICAL HISTORY: [id number]. SIDE PERFORMED: Left TECHNIQUE: The lower extremity deep venous system is examined utilizing real time linear array sonog clarie with graded compression, doppler sonography and color-flow sonography. VESSELS IMAGED: Common Femoral Vein Deep Femoral Vein Greater Saphenous Vein * Femoral Vein Popliteal Vein Small Saphenous Vein * Proximal Calf Veins (* superficial vessels) Left Leg: Negative for DVT Grayscale, color doppler, spectral doppler imaging performed of the deep veins of the left lower extr emity. There is normal flow, compressibility, vascular waveforms. IMPRESSION: No ultrasound evidence for acute DVT in the left lower extremity. No significant change from prior.
== END | disposition home or self-care (01) ==
LOC: RADMAMWWP 17:22
PROVIDERS: ATTEND Orthopaedic Surgery
DX: M17.12 Unilateral primary osteoarthritis, left knee (principal); M16.12 Unilateral primary osteoarthritis, left hip

== ENCOUNTER 2023-03-23 16:43 | Emergency (ER) | payer MEDICARE, BC ==
[2023-03-23 17:18] VITALS: PULSE 62; RESP 16; TEMP 98
--- NOTE | 2023-03-23 17:29 | ED ---
General Adult HPI - General Source: patient, family, RN notes reviewed Mode of arrival: wheelchair Limitations: no limitations <Mai Ugarte - Last Filed: 03/23/23 17:26> <Jamshid Gray - Last Filed: 03/23/23 22:02> - General Chief complaint: Dizziness Stated complaint: Lightheaded Time Seen by Provider: 03/23/23 17:20 - History of Present Illness Initial comments: 72-year-old female presents to the emergency department for chief complaint of lightheadedness and fogginess 3 days. Patient reports recent surgery on her parathyroid. She denies fever, chills, nausea, vomiting, chest pain, shortness of breath. (Mai Ugarte) 72-year-old female presenting to the ED with a chief complaint of fatigue. Patient states for the past week and a half has been more tired than usual. Also feels as if she is lightheaded describing it as feeling as if she is going to pass out. Additionally, states that she feels more confused than usual noting that she feels as if she is not thinking as quickly as she usually does. Denies chest pain, shortness of breath, abdominal pain, nausea, vomiting, diarrhea. No other complaints. (Jamshid Gray) - Related Data Home Medications Medication Instructions Recorded Confirmed Acetaminophen [Tylenol] 500 - 1,000 mg PO Q4-6H PRN 11/13/21 11/15/21 Previous Rx's Medication Instructions Recorded Aspirin 81 mg PO BID 30 Days #60 tab 11/18/21 Diclofenac Sodium [Voltaren] 75 mg PO BID 30 Days #60 tab 11/18/21 Docusate [Colace] 100 mg PO BID #60 capsule 11/18/21 HYDROcodone/APAP 5-325MG [[place] 1 - 2 tab PO Q6HR PRN 7 Days #40 11/18/21 5-325] tab Omeprazole 40 mg PO DAILY 30 Days #30 cap 11/18/21 Zolpidem Tartrate [Ambien] 10 mg PO HS #3 tab 11/18/21 Allergies Allergy/AdvReac Type Severity Reaction Status Date / Time No Known Allergies Allergy Verified 11/15/21 06:18 Review of Systems ROS Other: All systems not noted in ROS Statement are negative. <Mai Ugarte - Last Filed: 03/23/23 17:26> ROS Other: All systems not noted in ROS Statement are negative. <Jamhsid Gray - Last Filed: 03/23/23 22:02> ROS Statement: Those systems with pertinent positive or pertinent negative responses have been documented in the HPI. Past Medical History Past Medical History: Osteoarthritis (OA) Additional Past Medical History / Comment(s): Insomnia, Urinary incontinence, wears a pad 26/01, constipation. " had episode of severe dizziness, Dr Lundberg said it was Tinnitus, no problems since". History of Any Multi-Drug Resistant Organisms: None Reported Past Surgical History: Hysterectomy Past Anesthesia/Blood Transfusion Reactions: No Reported Reaction Additional Past Anesthesia/Blood Transfusion Reaction / Comment(s): "40+ yrs ago, had gas at dentist, took a couple hrs to come out of it". Past Psychological History: Anxiety Smoking Status: Never smoker Past Alcohol Use History: None Reported Past Drug Use History: None Reported - Past Family History Mother Family Medical History: Cancer Additional Family Medical History / Comment(s): Breast cancer. <Mai Ugarte - Last Filed: 03/23/23 17:26> General Exam Limitations: no limitations <Mai Ugarte - Last Filed: 03/23/23 17:26> Limitations: no limitations General appearance: alert, in no apparent distress Eye exam: Present: normal appearance, PERRL, EOMI ENT exam: Present: mucous membranes moist Neck exam: Present: normal inspection Respiratory exam: Present: normal lung sounds bilaterally Cardiovascular Exam: Present: regular rate, normal rhythm GI/Abdominal exam: Present: soft (No Tenderness to palpation. No rebound guarding or rigidity.) Neurological exam: Present: alert, oriented X3 Skin exam: Present: warm, dry <Jamshid Gray - Last Filed: 03/23/23 22:02> - General Exam Comments Initial Comments: Visual Physical Exam Vital signs reviewed General: Well-appearing, nontoxic, no acute distress. Head: Normocephalic, atraumatic Eyes: PERRLA, EOMI ENT: Airway patent Chest: Nonlabored breathing Skin: No visual rash, normal skin tone Neuro: Alert and oriented 3 Musculoskeletal: No gross abnormalities (Mai Ugarte) Course Vital Signs 03/23/23 03/23/23 17:14 21:51 Temperature 98 F Pulse Rate 62 Respiratory 16 Rate Blood Pressure 155/66 Blood Pressure 162/78 [Right Arm Sitting] Blood Pressure 134/79 [Right Arm Standing] Blood Pressure 164/73 [Right Arm Supine] O2 Sat by Pulse 98 Oximetry Medical Decision Making <Mai Ugarte - Last Filed: 03/23/23 17:26> - Lab Data Result diagrams: 03/23/23 17:35 03/23/23 17:35 <Jamshid Gray - Last Filed: 03/23/23 22:02> - Medical Decision Making I preformed the quick note portion of this chart. Electronically signed by Mai Ugarte PA-C (Mai Ugarte) Was pt. sent in by a medical professional or institution ([facility] Cameron, GENERAL OPERATOR, urgent care, hospital, or detention...) When possible be specific @ -No Did you speak to anyone other than the patient for history (EMS, parent, family, police, friend...)? What history was obtained from this source @ -No Did you review nursing and triage notes (agree or disagree)? Why? @ -I reviewed and agree with nursing and triage notes Were old charts reviewed (outside hosp., previous admission, EMS record, old EKG, old radiological studies, urgent care reports/EKG's, detention records)? Report findings @ -No old charts were reviewed Differential Diagnosis (chest pain, altered mental status, abdominal pain women, abdominal pain men, vaginal bleeding, weakness, fever, dyspnea, syncope, headache, dizziness, GI bleed, back pain, seizure, CVA, palpatations, mental health, musculoskeletal)? @ -Differential Altered Mental Status: Hypoglycemia, DKA, hypercapnia, ETOH, overdose, CO poisoning, trauma, myxedema coma, HTN encephalopathy, infection, encephalitis, psychosis, intercranial hemorrhage, hepatic encephalopathy, meningitis, CVA, this is not meant to be an all-inclusive list EKG interpreted by me (3pts min.). @ -As above X-rays interpreted by me (1pt min.). @ -None done CT interpreted by me (1pt min.). @ -CT brain shows no acute findings. Interpreted by me. U/S interpreted by me (1pt. min.). @ -None done What testing was considered but not performed or refused? (CT, X-rays, U/S, labs)? Why? @ -None What meds were considered but not given or refused? Why? @ -None Did you discuss the management of the patient with other professionals (professionals i.e. , PA, GENERAL OPERATOR, lab, RT, psych nurse, social service assistant, ceramics artist, teacher, juvenile probation officer, case packer)? Give summary @ -No Was smoking cessation discussed for >3mins.? @ -No Was critical care preformed (if so, how long)? @ -No Were there social determinants of health that impacted care today? How? (Homelessness, low income, unemployed, alcoholism, drug addiction, t ransportation, low edu. Level, literacy, decrease access to med. care, long-term, rehab)? @ -No Was there de-escalation of care discussed even if they declined (Discuss DNR or withdrawal of care, Hospice)? DNR status @ -No What co-morbidities impacted this encounter? (DM, HTN, Smoking, COPD, CAD, Cancer, CVA, ARF, Chemo, Hep., AIDS, mental health diagnosis, sleep apnea, morbid obesity)? @ -None Was patient admitted / discharged? Hospital course, mention meds given and route, prescriptions, significant lab abnormalities, going to OR and other pertinent info. @ -Discharge 72-year-old female presenting with a week history of lightheadedness, fatigue, and feeling as if she is not as mentally sharp as she normally is. CT brain shows no acute process. Laboratory studies including CBC, CMP, urine largely unremarkable.Orthostatics show blood pressure 164/73 and pulse 103 supine. Blood pressure 134/79 pulse 97 standing. Patient was offered observation however at this time patient reports that she would like to go home. At this time, felt patient stable for discharge. Patient discharged home in stable condition. Discussed return precautions with patient and family who verbalizes agreement. Undiagnosed new problem with uncertain prognosis? @ -No Drug Therapy requiring intensive monitoring for toxicity (Heparin, Nitro, Insulin, Cardizem)? @ -No Were any procedures done? @ -No Diagnosis/symptom? @ -Lightheadedness Acute, or Chronic, or Acute on Chronic? @ -Acute Uncomplicated (without systemic symptoms) or Complicated (systemic symptoms)? @ -Uncomplicated Side effects of treatment? @ -No Exacerbation, Progression, or Severe Exacerbation? @ -No Poses a threat to life or bodily function? How? (Chest pain, USA, NM, pneumonia, PE, COPD, DKA, ARF, appy, cholecystitis, CVA, Diverticulitis, Homicidal, Suicidal, threat to staff... and all critical care pts) @ -No ([email or web address]) - Lab Data Lab Results 03/23/23 03/23/23 03/23/23 Range/Units 17:35 17:35 17:35 WBC 5.7 (3.8-10.6) k/uL RBC 4.54 (3.80-5.40) m/uL Hgb 13.7 (11.4-16.0) gm/dL Hct 41.2 (34.0-46.0) % MCV 90.8 (80.0-100.0) fL MCH 30.2 (25.0-35.0) pg MCHC 33.3 (31.0-37.0) g/dL RDW 14.5 (11.5-15.5) % Plt Count 195 (150-450) k/uL MPV 7.1 Neutrophils % 62 % Lymphocytes % 26 % Monocytes % 7 % Eosinophils % 1 % Basophils % 0 % Neutrophils # 3.6 (1.3-7.7) k/uL Lymphocytes # 1.5 (1.0-4.8) k/uL Monocytes # 0.4 (0-1.0) k/uL Eosinophils # 0.0 (0-0.7) k/uL Basophils # 0.0 (0-0.2) k/uL PT 10.8 (9.0-12.0) sec INR 1.0 (<1.2) Sodium 141 (137-145) mmol/L Potassium 4.0 (3.5-5.1) mmol/L Chloride 111 H (98-107) mmol/L Carbon Dioxide 22 (22-30) mmol/L Anion Gap 8 mmol/L BUN 30 H (7-17) mg/dL Creatinine 0.66 (0.52-1.04) mg/dL Est GFR (CKD-EPI)AfAm >90 (>60 ml/min/1.73 sqM) Est GFR (CKD-EPI)NonAf 88 (>60 ml/min/1.73 sqM) Glucose 99 (74-99) mg/dL Calcium 9.8 (8.4-10.2) mg/dL Total Bilirubin 0.4 (0.2-1.3) mg/dL AST 21 (14-36) U/L ALT 16 (4-34) U/L Alkaline Phosphatase 80 (38-126) U/L Troponin I (0.000-0.034) ng/mL Total Protein 7.2 (6.3-8.2) g/dL Albumin 4.4 (3.5-5.0) g/dL Urine Color Urine Appearance (Clear) Urine pH (5.0-8.0) Ur Specific [place] (1.001-1.035) Urine Protein (Negative) Urine Glucose (UA) (Negative) Urine Ketones (Negative) Urine Blood (Negative) Urine Nitrite (Negative) Urine Bilirubin (Negative) Urine Urobilinogen (<2.0) mg/dL Ur Leukocyte Esterase (Negative) Urine RBC (0-5) /hpf Urine WBC (0-5) /hpf Ur Squamous Epith Cells (0-4) /hpf Calcium Oxalate Crystal (None) /hpf Urine Bacteria (None) /hpf Hyaline Casts (0-2) /lpf Urine Mucus (None) /hpf 03/23/23 03/23/23 Range/Units 17:35 20:38 WBC (3.8-10.6) k/uL RBC (3.80-5.40) m/uL Hgb (11.4-16.0) gm/dL Hct (34.0-46.0) % MCV (80.0-100.0) fL MCH (25.0-35.0) pg MCHC (31.0-37.0) g/dL RDW (11.5-15.5) % Plt Count (150-450) k/uL MPV Neutrophils % % Lymphocytes % % Monocytes % % Eosinophils % % Basophils % % Neutrophils # (1.3-7.7) k/uL Lymphocytes # (1.0-4.8) k/uL Monocytes # (0-1.0) k/uL Eosinophils # (0-0.7) k/uL Basophils # (0-0.2) k/uL PT (9.0-12.0) sec INR (<1.2) Sodium (137-145) mmol/L Potassium (3.5-5.1) mmol/L Chloride (98-107) mmol/L Carbon Dioxide (22-30) mmol/L Anion Gap mmol/L BUN (7-17) mg/dL Creatinine (0.52-1.04) mg/dL Est GFR (CKD-EPI)AfAm (>60 ml/min/1.73 sqM) Est GFR (CKD-EPI)NonAf (>60 ml/min/1.73 sqM) Glucose (74-99) mg/dL Calcium (8.4-10.2) mg/dL Total Bilirubin (0.2-1.3) mg/dL AST (14-36) U/L ALT (4-34) U/L Alkaline Phosphatase (38-126) U/L Troponin I <0.012 (0.000-0.034) ng/mL Total Protein (6.3-8.2) g/dL Albumin (3.5-5.0) g/dL Urine Color Light Yellow Urine Appearance Clear (Clear) Urine pH 5.5 (5.0-8.0) Ur Specific [place] 1.027 (1.001-1.035) Urine Protein Trace H (Negative) Urine Glucose (UA) Negative (Negative) Urine Ketones Negative (Negative) Urine Blood Small H (Negative) Urine Nitrite Negative (Negative) Urine Bilirubin Negative (Negative) Urine Urobilinogen <2.0 (<2.0) mg/dL Ur Leukocyte Esterase Trace H (Negative) Urine RBC 14 H (0-5) /hpf Urine WBC 5 (0-5) /hpf Ur Squamous Epith Cells <1 (0-4) /hpf Calcium Oxalate Crystal Occasional H (None) /hpf Urine Bacteria Rare H (None) /hpf Hyaline Casts 6 H (0-2) /lpf Urine Mucus Moderate H (None) /hpf - EKG Data EKG Comments: EKG shows a sinus rhythm at 58 beats for minute without acute ST or T-wave changes. NE 158, QRS 92, QT/QTc 434/426. (Jamshid Gray) Disposition <Mai Ugarte - Last Filed: 03/23/23 17:26> Is patient prescribed a controlled substance at d/c from ED?: No Time of Disposition: 22:02 <Jamshid Gray - Last Filed: 03/23/23 22:02> Clinical Impression: Lightheadedness Disposition: HOME SELF-CARE Condition: Good Instructions (If sedation given, give patient instructions): Dizziness (ED) Additional Instructions: Please return to the Emergency Department if symptoms worsen or any other concerns. Referrals: Kimberlee Lundberg DO [Primary Care Provider] - 1-2 days
[2023-03-23 18:07] LABS: ALT 16 U/L (4-34); AST 21 U/L (14-36); African American GFR (CKD) >90 (>60 ml/min/1.73 sqM); Albumin 4.4 g/dL (3.5-5.0); Alkaline Phosphatase 80 U/L (38-126); Anion Gap 8 mmol/L; Blood Urea Nitrogen 30 mg/dL (7-17); Calcium 9.8 mg/dL (8.4-10.2); Carbon Dioxide 22 mmol/L (22-30); Chloride 111 mmol/L (98-107); Glucose 99 mg/dL (74-99); Non-African American GFR(CKD) 88 (>60 ml/min/1.73 sqM); Sodium 141 mmol/L (137-145); Total Bilirubin 0.4 mg/dL (0.2-1.3); Total Protein 7.2 g/dL (6.3-8.2)
[2023-03-23 18:10] LABS: Prothrombin Time 10.8 sec (9.0-12.0)
[2023-03-23 18:13] LABS: Basophils % (A) 0 %; Eosinophils % (A) 1 %; HCT 41.2 % (34.0-46.0); HGB 13.7 gm/dL (11.4-16.0); Lymphocytes # (A) 1.5 k/uL (1.0-4.8); Lymphocytes % (A) 26 %; MCH 30.2 pg (25.0-35.0); MCHC 33.3 g/dL (31.0-37.0); MCV 90.8 fL (80.0-100.0); Mean Platelet Volume 7.1; Monocytes # (A) 0.4 k/uL (0-1.0); Monocytes % (A) 7 %; Neutrophils # (A) 3.6 k/uL (1.3-7.7); Neutrophils % (A) 62 %; Platelet Count 195 k/uL (150-450); RBC 4.54 m/uL (3.80-5.40); RDW 14.5 % (11.5-15.5); WBC 5.7 k/uL (3.8-10.6)
[2023-03-23 21:10] LABS: Appearance,Urine Clear (Clear); Bacteria,Urine Rare /hpf; Bilirubin,Urine Negative (Negative); Blood,Urine Small (Negative); Calcium Oxalate Crystals,Urine Occasional /hpf; Color,Urine Light Yellow; Glucose,Urine (UA) Negative (Negative); Hyaline Casts,Urine 6 /lpf (0-2); Ketones,Urine Negative (Negative); Leukocyte Esterase,Urine Trace (Negative); Mucus,Urine Moderate /hpf; Nitrite,Urine Negative (Negative); PH, Urine 5.5 (5.0-8.0); Protein,Urine Trace (Negative); RBC,Urine 14 /hpf (0-5); Specific Gravity,Urine 1.027 (1.001-1.035); Squamous Epithelial Cell,Urine <1 /hpf (0-4); Urobilinogen,Urine <2.0 mg/dL (<2.0); WBC,Urine 5 /hpf (0-5)
--- NOTE | 2023-03-23 21:21 | CT ---
EXAMINATION TYPE: CT brain wo con CT DLP: 1201.4 mGycm, Automated exposure control for dose reduction was used. DATE OF EXAM: 03/23/2023 9:07 PM COMPARISON: None. CLINICAL INDICATION:Female, 72 years old with history of confusion, lightheaded, confusion TECHNIQUE: Brain: Axial CT images of the brain were obtained with coronal and sagittal reformats created and rev iewed. Contrast used: None. Oral contrast used: None. FINDINGS: Brain: Extra-axial spaces: No abnormal extra-axial fluid collections. Ventricular system: Dilatation in proportion to cerebral atrophy. Cerebral parenchyma: Cerebral atrophy. No acute intraparenchymal hemorrhage or mass effect. The byrd -white junction is well differentiated. Scattered hypoattenuating areas are seen within the white mat ter. Cerebellum: Unremarkable. Mass effect: No evidence of midline shift. Intracranial vasculature: Atherosclerotic calcifications of the intracranial vessels. Soft tissues: Normal. Calvarium/osseous structures: No depressed skull fracture. Paranasal sinuses and mastoid air cells: Mild scattered paranasal sinus disease. Visualized orbits: Orbital contents are intact. IMPRESSION: 1. No acute intracranial process. 2. Nonspecific white matter changes, likely secondary to chronic small vessel ischemic disease.
[2023-03-23 21:54] VITALS: BP 164/73
== END 2023-03-23 22:15 | disposition home or self-care (01) ==
LOC: EC 16:43
DX: R42 Dizziness and giddiness (principal); M19.90 Unspecified osteoarthritis, unspecified site; Z86.59 Personal history of other mental and behavioral disorders; Z79.1 Long term (current) use of non-steroidal anti-inflammatories (NSAID)
CPT/HCPCS: 36415; 70450; 80053; 81001; 84484; 85025; 85610; 93005; 99284

== ENCOUNTER → 2023-06-03 | Outpatient (CLI) | payer MEDICARE, BC ==
[2023-06-03 16:03] LABS: Appearance,Urine Clear (Clear); Bilirubin,Urine Negative (Negative); Blood,Urine Negative (Negative); Color,Urine Yellow (Yellow); Ketones,Urine Negative (Negative); Nitrite,Urine Negative (Negative); PH, Urine 5.5; Urobilinogen,Urine 0.2 E.U./DL
[2023-06-03 16:05] LABS: ALT 10 U/L (8-44); AST 13 U/L (13-35); Albumin 4.2 g/dL (3.8-4.9); Alkaline Phosphatase 69 U/L (41-126); BUN/Creat Ratio 30.14 Ratio (12.00-20.00); Blood Urea Nitrogen 21.1 mg/dL (9.0-27.0); Calcium 9.5 mg/dL (8.7-10.3); Carbon Dioxide 21.6 mmol/L (21.6-31.8); Chloride 105 mmol/L (96-109); Glucose 91 mg/dL (70-110); Potassium 4.3 mmol/L (3.5-5.5); Sodium 138 mmol/L (135-145); Total Bilirubin 0.3 mg/dL (0.3-1.2); Total Protein 6.2 g/dL (6.2-8.2)
[2023-06-03 16:07] LABS: Bacteria,Urine None Seen (None Seen)
[2023-06-03 16:22] LABS: Basophils # (A) 0.05 X 10*3/uL (0.00-0.10); Basophils % (A) 0.9 %; Eosinophils # (A) 0.06 X 10*3/uL (0.04-0.35); HCT 38.8 % (37.2-46.3); HGB 12.4 g/dL (12.0-15.0); Lymphocytes # (A) 1.61 X 10*3/uL (0.90-5.00); Lymphocytes % (A) 27.4 %; MCH 29.8 pg (27.0-32.0); MCV 93.3 FL (80.0-97.0); Mean Platelet Volume 9.6 FL (9.5-12.2); Monocytes # (A) 0.38 X 10*3/uL (0.20-1.00); Monocytes % (A) 6.5 %; NRBC Per 100 WBC 0 X 10*3/uL (0.00-0.01); Neutrophils # (A) 3.77 X 10*3/uL (1.80-7.70); Platelet Count 242 X 10*3/uL (140-440); RBC 4.16 X 10*6/uL (4.10-5.20); WBC 5.88 X 10*3/uL (4.50-10.00)
== END | disposition home or self-care (01) ==
LOC: LABWHC1 09:45
PROVIDERS: ATTEND Orthopaedic Surgery
DX: Z01.812 Encounter for preprocedural laboratory examination (principal)
CPT/HCPCS: 36415; 80053; 81001; 83036; 85025; 85610; 85730; 86850; 86900; 86901; 87086

== ENCOUNTER → 2024-06-22 | Outpatient (CLI) | payer MEDICARE, BC ==
--- NOTE | 2024-06-22 10:10 | CT ---
EXAMINATION TYPE: CT abdomen pelvis wo con DATE OF EXAM: 06/22/2024 8:26 AM COMPARISON: None CLINICAL INDICATION: Female, 73 years old with history of R31.0 R10.32; gross hematuria and lower shahid k/belly pain TECHNIQUE: Axial CT abdomen pelvis wo con;Sagittal and coronal reformats were created on a separate workstation. Contrast used: mL of , (none if empty) Oral contrast used: without Oral Contrast (none if empty) CT DLP: 972 mGycm, Automated exposure control for dose reduction was used. FINDINGS: LOWER CHEST: Unremarkable ABDOMEN LIVER: Unremarkable GALLBLADDER AND BILE DUCTS: Unremarkable. PANCREAS: Unremarkable. SPLEEN: Unremarkable. ADRENAL GLANDS: Unremarkable. KIDNEYS AND URETERS: Right renal calculi measuring up to r 5 mm. The left renal calculi. No evidence of hydronephrosis or renal calculus. The ureters are unremarkable. PELVIS BLADDER: No evidence for wall thickening or mass given limitations of exam. Evaluation of the bladder is limited by streak artifact REPRODUCTIVE: Evaluation limited due to streak artifact. Ureters are not definitively visualized. ABDOMEN & PELVIS STOMACH AND BOWEL: No evidence of bowel obstruction. PERITONEUM/RETROPERITONEUM: No evidence of pneumoperitoneum or free fluid. VASCULATURE: No evidence of aortic aneurysm. MUSCULOSKELETAL: No acute osseous abnormalities. Moderate disc degeneration changes are present throu ghout the thoracolumbar spine. bilateral hip arthroplasty changes with streak artifact limiting evalu ation of the pelvis. LYMPH NODES: No gross evidence for lymphadenopathy. SOFT TISSUE/ABDOMINAL WALL: Ventral wall hernias containing fat measuring 2.3 cm of the neck just bel ow the umbilicus and 3.9 cm of the neck near the pubic symphysis. IMPRESSION: 1. Multiple nonobstructing right renal calculi. No hydronephrosis. The bladder near the ureterovesic ular junction is poorly visualized due to streak artifact. 2. Colonic diverticulosis. 3. Ventral wall hernias containing fat. [facility], , 06/22/2024 10:08 AM
== END | disposition home or self-care (01) ==
LOC: RADCTMAIN 07:15
PROVIDERS: ATTEND Family Medicine
DX: N20.0 Calculus of kidney (principal); K57.30 Diverticulosis of large intestine without perforation or abscess without bleeding; R31.0 Gross hematuria; K46.9 Unspecified abdominal hernia without obstruction or gangrene
CPT/HCPCS: 74176

== ENCOUNTER → 2024-09-26 | Outpatient (CLI) | payer MEDICARE, BC ==
--- NOTE | 2024-09-26 11:04 | CA ---
Lexiscan Nuclear Stress Test Report Name: Heather Kelly Exam Date: 09/26/2024 09:14 Exam Location: [facility] Ht (in): 63 Wt (lb): 190 BSA: 1.89 Ordering Phys: Kimberlee Schmitt DO Referring Phys: Kimberlee Schmitt DO Technologist: Mane Mckeon Age: 74 Gender: F : 1950 Procedure CPT: Indications: R10.12 LEFT UPPER QUADRANT PAIN ICD-10 Codes: Patient History: CHEST PAIN, DIFFICULTY IN BREATHING, PALPITATIONS, HTN, FAMILY HX OF HEART DISEASE Medications: TYLENOL,,,, OXYBUTIN,,,, LISINOPRIL,,, Meds past 24 hrs: Pretest Chest Pain: STRESS TEST Lexiscan Protocol Exercise Duration (min:sec): 01:[address] Depressions (mm): Angina Score: Parada Score: Resting HR (bpm): 71 Peak HR (bpm): 103 Resting BP (mmHg): 152 / 69 Peak BP (mmHg): 175 / 60 MPHR: 145 Target HR: 123 % MPHR: 71 METS: 1.0 Total Dose: Peak Dose: Atropine: Double Product: 66230 BP Response: Stress Termination: INFUSION COMPLETE Stress Symptoms: HEART RACING Stress Summary: ECG ANALYSIS Resting ECG: Normal sinus rhythm normal axis normal intervals Stress ECG: Patient was given Lexiscan as per protocol did not have chest pain or diagnostic ST segment depression CONCLUSIONS Negative stress test by EKG criteria Cardiolite portion of the stress test will be reported separately Dr. David Solorio MD (Electronically Signed) Final Date: 26 September 2024 11:03
--- NOTE | 2024-09-26 13:14 | NM ---
EXAMINATION TYPE: NM stress lexiscan cardiolite DATE OF EXAM: 09/26/2024 COMPARISON: NONE CLINICAL INDICATION: Female, 74 years old with history of R10.12 LEFT UPPER QUADRANT PAIN; history of hypertension and family history of coronary artery disease. TECHNIQUE: After the intravenous administration of 10.6 mCi Tc 99m Sestamibi - Cardiolite resting SP ECT images acquired 45 minutes post injection. The patient received 0.4mg Lexiscan, 25.4 mCi Tc 99m Sestamibi - Stress images obtained [address] injection FINDINGS: Review of stress and rest SPECT images demonstrates no distinct perfusion abnormality. Gated analysi s shows normal wall motion with an estimated left ventricular ejection fraction of 70 %. IMPRESSION: No scintigraphic evidence for reversible ischemia. [facility], , 09/26/2024 1:12 PM
== END | disposition home or self-care (01) ==
LOC: RADNMMAIN 07:24
PROVIDERS: ATTEND Family Medicine
DX: R10.12 Left upper quadrant pain (principal); R07.89 Other chest pain; I10 Essential (primary) hypertension; R00.2 Palpitations; R06.00 Dyspnea, unspecified; Z82.49 Family history of ischemic heart disease and other diseases of the circulatory system
CPT/HCPCS: 93017; 78452; A9500

== ENCOUNTER → 2024-09-29 | Outpatient (CLI) | payer MEDICARE, BC ==
[2024-09-29 06:57] LABS: African American GFR (CKD) 81 (>60 ml/min/1.73 sqM); Blood Urea Nitrogen 23 mg/dL (7-17); Non-African American GFR(CKD) 70 (>60 ml/min/1.73 sqM)
--- NOTE | 2024-09-29 08:26 | CT ---
EXAMINATION TYPE: CT abdomen pelvis wo/w con CT DLP: 2219 mGycm, Automated exposure control for dose reduction was used. DATE OF EXAM: 09/29/2024 8:14 AM COMPARISON: CT abdomen pelvis 06/22/2024 CLINICAL INDICATION:Female, 74 years old with history of R10.12 LUQ pain R10.32 LLQ pain; TECHNIQUE: Standard CT of the abdomen and pelvis before and after the uneventful administration of 100 mL of Isovue-370 intravenously. Oral contrast was administered.. Coronal and sagittal reformats w ere performed. FINDINGS: LOWER CHEST: The visualized lungs are clear. Mild prominence of the heart. Elevation of the right hem idiaphragm. ABDOMEN LIVER: Subcentimeter cyst within the left hepatic lobe with additional inferior right hepatic lobe 2. 2 cm cyst. GALLBLADDER AND BILE DUCTS: Unremarkable. PANCREAS: Unremarkable. SPLEEN: Unremarkable. ADRENAL GLANDS: Unremarkable. KIDNEYS AND URETERS: No evidence of hydronephrosis. No left renal calculi. There are approximately 6 nonobstructive right renal calculi with largest measuring up to 4 mm in the renal pelvis. The kidneys enhance symmetrically. Contrast is demonstrated within both collecting systems and proximal and mid ureters on the delayed phase. PELVIS BLADDER: Limited evaluation due to streak artifact from hip prosthesis. No gross abnormality. REPRODUCTIVE: Limited evaluation due to streak artifact from hip prosthesis. No gross abnormality. ABDOMEN & PELVIS STOMACH AND BOWEL: Small hiatal hernia, duodenum is unremarkable. Enteric contrast reaches the ascend ing colon. Extensive distal colonic diverticulosis without evidence for acute diverticulitis. No foca l bowel wall thickening or surrounding inflammatory changes. No evidence of bowel obstruction. PERITONEUM: No evidence of pneumoperitoneum or free fluid. VASCULATURE: Mild atherosclerotic calcifications are present throughout the abdominal aorta and its b ranches. No evidence of aortic aneurysm. MUSCULOSKELETAL: No acute osseous abnormalities. Postsurgical changes from bilateral hip arthroplasty . This creates streak artifact which limits evaluation. Mild multilevel degenerative disc disease. LYMPH NODES: No gross evidence for lymphadenopathy. SOFT TISSUE/ABDOMINAL WALL: Surgical changes in the midline anterior abdominal wall with at least 3 f at filled ventral wall hernias. Largest within the anterior pelvic wall with defect measuring up to 2 .2 cm in diameter. IMPRESSION: 1. No CT evidence for acute abdominal/pelvic process. 2. Nonobstructing right renal calculi. 3. Colonic diverticulosis without evidence for acute diverticulitis. 4. Few ventral abdominal wall fat filled incisional hernias redemonstrated. [facility], , 09/29/2024 8:23 AM
== END | disposition home or self-care (01) ==
LOC: RADCTMAIN 05:51
PROVIDERS: ATTEND Family Medicine
DX: N20.0 Calculus of kidney (principal); K57.30 Diverticulosis of large intestine without perforation or abscess without bleeding; K43.2 Incisional hernia without obstruction or gangrene
CPT/HCPCS: 82565; 84520; 74178; 36415; Q9967

== ENCOUNTER → 2024-11-01 | Outpatient (CLI) | payer MEDICARE, BC ==
--- NOTE | 2024-11-01 13:27 | MM ---
Reason for Exam: Screening (asymptomatic). Last mammogram was performed 4 year(s) and 4 month(s) ago. Patient History: Menarche at age 9. Patient has no children. Postmenopausal. Mother had breast cancer, age 40. Risk Values: Airam 5 year model risk: 3.8%. NCI Lifetime model risk: 8.1%. Prior Study Comparison: 07/14/2017 Bilateral Screening Mammogram, [facility]. 10/25/2018 Bilateral Screening Mammogram, [facility]. 06/26/2020 Bilateral Screening Mammogram, [facility]. Tissue Density: The breasts are heterogeneously dense, which may obscure small masses. Findings: Analyzed By CAD. There are multiple benign-appearing round calcifications bilaterally redemonstrated. There is no suspicious group of microcalcifications or new suspicious mass in either breast. Overall Assessment: Benign, BI-RAD 2 Management: Screening Mammogram of both breasts in 1 year. . Patient should continue monthly self-breast exams. A clinical breast exam by your physician is recommended on an annual basis. This exam should not preclude additional follow-up of suspicious palpable abnormalities. Note on Airam scores and lifetime risk: 1. A Airam score greater than 3% is considered moderate risk. If this is the case, consider specialist referral to assess eligibility for a risk reducing agent. 2. If overall lifetime risk for the development of breast cancer is 20% or higher, the patient may qualify for future screening with alternating mammogram and breast MRI. [facility], , 11/01/2024 1:25 PM. Electronically signed and approved by: Tj Buckner M.D.
== END | disposition home or self-care (01) ==
LOC: RADMAMWWP 07:00
PROVIDERS: ATTEND Family Medicine
DX: Z12.31 Encounter for screening mammogram for malignant neoplasm of breast (principal); R92.333 Mammographic heterogeneous density, bilateral breasts; R92.1 Mammographic calcification found on diagnostic imaging of breast; Z78.0 Asymptomatic menopausal state; Z80.3 Family history of malignant neoplasm of breast
CPT/HCPCS: 77063; 77067